=== PATIENT | male | born 1985 | race Two or more races ===

== ENCOUNTER 2022-03-22 11:15 | Inpatient (IN) | payer OTHER ==
[~2022-03-22] VITALS: Ht 190.5 cm; Wt 102.1 kg
[~2022-03-22 11:15] MED LIST: CIPRO500 MG PO; FLAGYL500MG PO
[2022-03-22] MEDS ORDERED: SYNTHROID75 MCG PO (13:40)
[2022-03-22] MEDS ORDERED: MICARDIS20 MG PO (13:41)
[2022-03-25] MEDS ORDERED: INTESTINEX680 M1 (16:22)
[2022-03-29] MEDS ORDERED: HYOSCYAMINE0.125 M1 SL (07:58)
[2022-03-29] MEDS ORDERED: INTEGRA PLUS C1 EACH PO (07:59)
[2022-03-29] MEDS ORDERED: INTESTINEX680 M1 PO (07:59)
[2022-03-29] MEDS ORDERED: OXYC1TAB9 PO (07:59)
== END 2022-03-29 13:58 | disposition home or self-care (01) | DRG 330 ==
LOC: O/R 03-25 06:13 → SURG 03-25 07:15 → LDR 03-25 11:15 → SURG 03-25 11:15 → SURH 03-25 14:12
PROVIDERS: ADMIT Surgery; ATTEND Surgery
PROC: 0DBP4ZZ Excision of Rectum, Percutaneous Endoscopic Approach (ICD-10-PCS; 2022-03-25)
PROC: 0DJD8ZZ Inspection of Lower Intestinal Tract, Via Natural or Artificial Opening Endoscopic (ICD-10-PCS; 2022-03-25)
PROC: 30233N1 Transfusion of Nonautologous Red Blood Cells into Peripheral Vein, Percutaneous Approach (ICD-10-PCS; 2022-03-25)
PROC: 0DTN4ZZ Resection of Sigmoid Colon, Percutaneous Endoscopic Approach (ICD-10-PCS; principal; 2022-03-25 07:15)
DX: K57.32 Diverticulitis of large intestine without perforation or abscess without bleeding (principal); D62 Acute posthemorrhagic anemia; K91.870 Postprocedural hematoma of a digestive system organ or structure following a digestive system procedure; R10.32 Left lower quadrant pain; I10 Essential (primary) hypertension; Z20.822 Contact with and (suspected) exposure to COVID-19